=== PATIENT | female | born 1995 | race Caucasian/White ===

== ENCOUNTER 2022-06-29 13:00 | Emergency (ER) | payer BC ==
[2022-06-29] MEDS: Morphine 2 MG/ML SYRINGE IVPUSH ONE ×2 (13:27→14:06)
[2022-06-29] MEDS: Sodium Chloride 0.9% 1,000 ML IV SCH (13:30)
[2022-06-29 13:44] LABS: CHLORIDE,CL 101 mmol/L (98-107); SODIUM,NA 135 mmol/L (136-145)
[2022-06-29 13:50] LABS: ANION GAP 13.3 meq/L (7-15); ESTIMATED GFR 123 mL/min (>=60)
[2022-06-29 17:31] VITALS: BP 104/67; PULSE 104
== END 2022-06-29 15:35 ==
LOC: LL.ED 13:00
DX: O26.899 Other specified pregnancy related conditions, unspecified trimester (principal); R10.12 Left upper quadrant pain; Z3A.00 Weeks of gestation of pregnancy not specified
CPT/HCPCS: 36415; 80053; 81001; 82150; 83690; 84484; 85025; 86140; 87086; 93005; 93010; 96361; 96374; 96376; 99284; 99284-25; J2270; J7030